=== PATIENT | female | born 1995 | race Caucasian/White ===

== ENCOUNTER 2017-03-12 06:25 | Inpatient (IN) | payer OTHER ==
[2017-03-12] MEDS ORDERED: BUTORPHANOL TARTRATE 1 MG/ML VIAL IVPB ONE (08:58)
[2017-03-12] MEDS ORDERED: DEXTROSE 5%-LACTATED RINGERS 1,000 ML IV SCH (09:00)
[2017-03-12 10:07] VITALS: BMI 27.3
[2017-03-12 10:19] LABS: BASOPHIL 0.6 % (0-2.0); EOSINOPHIL 0.6 % (0-4.5); MCH 27.7 pg (25.7-33.7); MCHC 32.9 g/dl (32.0-36.0); MEAN CELL VOLUME 84.1 fl (80-96); NEUTROPHILS 70.6 % (42.8-82.8); PLATELET COUNT 239 K/MM3 (134-434); RDW 14.6 % (11.6-15.6); WHITE BLOOD COUNT 9.8 K/mm3 (4.0-10.0)
[2017-03-12] MEDS ORDERED: OXYTOCIN 15 UNITS/ LR 250 ML 250 ML IVPB SCH (10:20)
[2017-03-12 10:58] LABS: CALCIUM 8.8 mg/dL (8.5-10.1); COCKROFT - GAULT 174.1735; CREATININE 0.6 mg/dL (0.55-1.02)
--- NOTE | 2017-03-12 11:33 | HP ---
Past Medical History - Primary Care Physician PCP:: Aniya Benavides - Admission Chief Complaint: 22 yrs , 40.2 weeks iup, srom since 5.20 am, OnsetLP since 5.30 am. admitted in labor History of Present Illness: PNC at , [facility] .. wt gain 20 lbs work Up : B neg, Ante Rhogam was taken in the clinic at 28 weeks . Hbsag nr. Rpr nr, Hiv nr, rubella immune, Quantiferon neg, , Gbs neg, PNGT 103 pt was seen by MFM NT screen DS risk 1:92, Quad screen & Materna T-21 screen neg Serial sono done for growth & reviewed History Source: Patient, Medical Record Limitations to Obtaining History: No Limitations - Past Medical History HEAD COOK: No: Migraine, Seizure Cardiovascular: No: HTN, Murmur Pulmonary: No: Asthma ...: 2 ...Para: 1 ( 02/21/16 7'5') ...Term: 1 ...LMP: 05/16/16 (mistaken Dates , EDC by Sono ) ...EDC by Sono: 03/10/17 (40.2 weeks ) Heme/Onc: Yes: Anemia Infectious Disease: No: HIV, STD's Psych: No: Addictions, Anxiety, Bipolar, Depression Endocrine: No: Diabetes Mellitus, Hypothyroidism - Past Surgical History Past Surgical History: Yes: None Hx Myomectomy: No Hx Transabdominal Cerclage: No - Smoking History Smoking history: Never smoked Have you smoked in the past 12 months: No - Alcohol/Substance Use Hx Alcohol Use: No History of Substance Use: reports: None Home Medications - Allergies Allergies/Adverse Reactions: Allergies Allergy/AdvReac Type Severity Reaction Status Date / Time No Known Allergies Allergy Verified 08/12/16 10:11 - Home Medications Home Medications: Ambulatory Orders Vit/Iron Fumarate/FA [ Tablet] 1 each PO DAILY 01/26/16 Physical Exam - Maternity Vital Signs: Vital Signs Temperature 98.2 F 03/12/17 10:00 Pulse Rate 82 03/12/17 10:00 Respiratory Rate 20 03/12/17 10:00 Blood Pressure 105/60 03/12/17 10:00 O2 Sat by Pulse Oximetry (%) Constitutional: Yes: Well Nourished, Mild Distress Eyes: Yes: WNL HENT: Yes: WNL Neck: Yes: WNL Cardiovascular: Yes: WNL Lungs: Clear to auscultation Breast(s): Yes: WNL - Abdominal Exam/OB Fundal Height: 38 Number of Fetuses: Single Presentation: Vertex Contractions: Yes Regularity: Irregular (6-7 min) Intensity: Mild/Mod Monitor Mode: External Heart Rate (range): 130-135 Heart Rate Location: [facility] Category: I Accelerations: Uniform Decelerations: None - Vaginal Exam/OB Vaginal Bleediing: No Speculum Exam: No Dilatation (cm): 4-5 cm Effacement (%): 100 Amniotic Membrane Status: Ruptured Nitrazine Test: Negative (equivocal for the nurse) Presentation: Vertex/Position (exam at 8.45 am) Station: -1 - Physical Exam Musculoskeletal: Yes: WNL Extremities: Yes: WNL Edema: Yes Edema: LLE: 1+, RLE: 1+ Integumentary: Yes: WNL Deep Tendon Reflex Grade: Normal +2 ...Motor Strength: WNL Psychiatric: Yes: WNL - Labs Lab Results: CBC, BMP 03/12/17 09:30 03/12/17 09:30 Problem List - Problems (1) Post-term , 40-42 weeks of gestation Code(s): O48.0 - POST-TERM (2) SROM (spontaneous rupture of membranes) Code(s): IFX4415 - (3) Labor established Code(s): PMW6707 - (4) Anemia Code(s): D64.9 - ANEMIA, UNSPECIFIED Qualifiers: Anemia type: iron deficiency Iron deficiency anemia type: inadequate dietary iron intake Qualified Code(s): D50.8 - Other iron deficiency anemias Assessment/Plan 22 yrs , 40.2 weeks srom followed by labor pains admitted in labor Plan Pitocin augmentation Trial vaginal delivery
[2017-03-12] MEDS ORDERED: BUTORPHANOL TARTRATE 1 MG/ML VIAL IVPUSH ONE (11:58)
--- NOTE | 2017-03-12 12:01 | PN ---
Progress Note, Labor Vaginal Exam #1 Labor Exam Date: 03/12/17 Labor Exam Time: 11:55 Heart Rate (range): 130 Dilatation: 7-8 Effacement (%): 100 Amniotic Membrane Status: Ruptured Presentation: Vertex/Position Station: +1 Remarks: uc 2-3 min fhr cat-1 plan stadol iv [address] pitocin augmentation 03/12/17 03/12/17 10:00 11:00 Temperature 98.2 F Pulse Rate 82 80 Blood Pressure 105/60 112/54 Vaginal Exam #2 Labor Exam Date: 03/12/17 Labor Exam Time: 12:40 Heart Rate (range): 135 Dilatation: 10 Effacement (%): 100 Amniotic Membrane Status: Ruptured Presentation: Vertex/Position Station: +3 Remarks: fhr cat-1 uc q2 min pt pushing Selected Entries 03/12/17 12:00 Temperature 98.0 F Pulse Rate 81 Blood Pressure 120/64
[2017-03-12] MEDS ORDERED: BENZOCAINE 28 GM HEMORRHOIDAL OINTMENT TP PRN (14:12)
[2017-03-12] MEDS ORDERED: BISACODYL 10 MG SUPP.RECT RC PRN (14:12)
[2017-03-12] MEDS ORDERED: METHYLERGONOVINE MALEATE 0.2 MG/1 ML AMP IM PRN (14:12)
[2017-03-12] MEDS ORDERED: oxyCODONE HCL 5 MG TABLET PO PRN (14:12)
[2017-03-12] MEDS ORDERED: WITCH HAZEL 50% (TUCKS) 40 PAD/JAR PAD TP PRN (14:12)
[2017-03-12] MEDS ORDERED: BENZOCAINE 20% 57 GM BOTTLE TP PRN (14:12)
[2017-03-12] MEDS ORDERED: D5W-LR W/ 20 UNITS OXYTOCIN 1,000 ML IV SCH (14:15)
--- NOTE | 2017-03-12 14:19 | PN ---
Delivery - Delivery Vaginal Delivery: No Problems, Spontaneous Type of Anesthesia: Local Episiotomy/Laceration: Vaginal Extension/lac (lacerarion sutred with chr catgut #2/0 under L/A), 1st degree EBL (cc): 300 Delivery, Single - Stages of Labor Date 1st Stage Initiatied: 03/12/17 Time 1st Stage Initiated: 05:30 Date 2nd Stage Initiated: 03/12/17 Time 2nd Stage Initiated: 12:40 Date of Delivery: 03/12/17 Time of Delivery: 12:51 Date Placenta Delivered: 03/12/17 Time Placenta Delivered: 13:00 Placenta: Yes: Spontaneous, Uterine Exploration - Condition of Fruit Worker/Digital Computer Operator Present: No Infant Gender: Female Weight: 7 lb 4 oz Position: Left, OA Total Hours ROM (Hrs/Mins): 7h 41min - 1 Minute Total Score: 9 5 Minutes Total Score: 10 - [place] Feeding Plan Initial Plan: Elected not to breastfeed exclusively throughout hospitalization Remarks - Remarks Remarks: 22 yrs , 40.2 weeks , srom followed by LP. GBS neg PNC at [address] [place] [address] . Intrapartum IV stadol was given for labor analgesia Intrapartum course uneventful
[2017-03-12] MEDS: IBUPROFEN 600 MG TABLET (FP) PO PRN (15:49)
[2017-03-12] MEDS: ACETAMINOPHEN 325 MG TABLET (FP) PO PRN (15:50)
[2017-03-12] MEDS: FERROUS SO4 325 MG TABLET (FP) PO SCH (17:44)
[2017-03-13] MEDS: IBUPROFEN 600 MG TABLET (FP) PO PRN ×2 (01:30→20:04)
[2017-03-13] MEDS: ACETAMINOPHEN 325 MG TABLET (FP) PO PRN ×2 (01:32→20:06)
--- NOTE | 2017-03-13 08:16 | PN ---
Progress Note (short form) - Note Progress Note: ppd 1 doing well, no c/o CBC, BMP 03/12/17 09:30 03/12/17 09:30 Last Vital Signs Temp Pulse Resp BP Pulse Ox 98.2 F 76 18 96/48 03/13/17 05:53 03/13/17 05:53 03/13/17 05:53 03/13/17 05:53 abdomen soft, uterus firm, non tender, lochia mild no calf tenderness plan ambulate, cbc
[2017-03-13] MEDS: PRENATAL VITAMINS W/ FOLIC ACID TABLET (FP) PO SCH (09:01)
[2017-03-13] MEDS: FERROUS SO4 325 MG TABLET (FP) PO SCH ×2 (09:01→17:25)
[2017-03-13 09:10] LABS: BASOPHIL 0.9 % (0-2.0); EOSINOPHIL 0.8 % (0-4.5); MCH 27.4 pg (25.7-33.7); MCHC 32.7 g/dl (32.0-36.0); MEAN CELL VOLUME 83.9 fl (80-96); MEAN PLT VOLUME 8.8 fl (7.5-11.1); NEUTROPHILS 70.5 % (42.8-82.8); PLATELET COUNT 225 K/MM3 (134-434); WHITE BLOOD COUNT 11.3 K/mm3 (4.0-10.0)
[2017-03-13] MEDS ORDERED: SENNOSIDES/DOCUSATE COMBO (SENNA PLUS) TABLET (UD) PO PRN (22:00)
[2017-03-14] MEDS: FERROUS SO4 325 MG TABLET (FP) PO SCH (08:27)
[2017-03-14 08:54] VITALS: BP 96/57; PULSE 74; TEMP 98.1
[2017-03-14] MEDS: PRENATAL VITAMINS W/ FOLIC ACID TABLET (FP) PO SCH (09:48)
--- NOTE | 2017-03-14 10:25 | DS ---
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 Vital Signs: Vital Signs Temperature 98.1 F 03/14/17 08:52 Pulse Rate 74 03/14/17 08:52 Respiratory Rate 20 03/14/17 08:52 Blood Pressure 96/57 03/14/17 08:52 O2 Sat by Pulse Oximetry (%) Constitutional: Yes: Well Nourished, Pallor Eyes: Yes: WNL HENT: Yes: WNL Neck: Yes: WNL Cardiovascular: Yes: WNL Respiratory: Yes: WNL Gastrointestinal: Yes: WNL ...Rectal Exam: Yes: WNL Renal/: Yes: WNL Pelvis: Yes: WNL External Genitalia: Yes: Normal ....Post : Yes: Uterus firm, Uterus non-tender, Moderate lochia rubra ( perineum intact) Breast(s): Yes: WNL (BF , Not engorged) Musculoskeletal: Yes: WNL Extremities: Yes: WNL. No: Calf Tenderness Edema: Yes Edema: LLE: Trace, RLE: Trace Integumentary: Yes: WNL Neurological: Yes: WNL, Alert, Oriented ...Motor Strength: WNL Psychiatric: Yes: WNL, Alert, Oriented Labs: CBC, BMP 03/13/17 08:50 03/12/17 09:30 Delivery - Delivery Vaginal Delivery: No Problems, Spontaneous Type of Anesthesia: Local Episiotomy/Laceration: Vaginal Extension/lac (lacerarion sutred with chr catgut #2/0 under L/A), 1st degree EBL (cc): 300 Delivery, Single - Stages of Labor Date 1st Stage Initiatied: 03/12/17 Time 1st Stage Initiated: 05:30 Date 2nd Stage Initiated: 03/12/17 Time 2nd Stage Initiated: 12:40 Date of Delivery: 03/12/17 Time of Delivery: 12:51 Time Placenta Delivered: 13:00 Placenta: Yes: Spontaneous, Uterine Exploration - Condition of Workforce Development Program Director/Mixing Engineer Present: No Gender: Female Weight: 7 lb 4 oz Position: Left, OA Total Hours ROM (Hrs/Mins): 7h 41min - 1 Minute Total Score: 9 5 Minutes Total Score: 10 - Feeding Plan Initial Plan: Elected not to breastfeed exclusively throughout hospitalization Remarks - Remarks Remarks: 22 yrs , 40.2 weeks , srom followed by LP. GBS neg PNC at [address] [place] [address] . Intrapartum IV stadol was given for labor analgesia Intrapartum course uneventful Pp course uneventful Anemia counselled Discharge today. Discharge Summary Reason For Visit: LABOR Current Active Problems Anemia (Acute) Labor established (Acute) Normal spontaneous vaginal delivery (Acute) Post-term , 40-42 weeks of gestation (Acute) SROM (spontaneous rupture of membranes) (Acute) Condition: Stable - Instructions Diet, Activity, Other Instructions: Post Instructions DIET: Continue good diet high in protein, calcium, and iron rich foods. Drink at least eight (8) glasses of water daily in addition to other fluids. Ct Regular diet MEDICATIONS: Continue vitamins and iron as previously directed. Motrin and Tylenol may be taken for minor discomfort. ACTIVITY: Mild to moderate exercise may be started in two (2) weeks. Take frequent rest periods. Resume normal activity after six (6) week check up. WOUND CARE OF OPERATIVE SITE: Continue use of perineal bottle until vaginal discharge stops. Keep area clean. Shower daily. Keep abdominal wound dry. Report any drainage or redness to physician. Tub baths, tampons and douches are not permitted for [address] Breast feeding & or Bottle feeding BREAST CARE: (For those that are not ): If engorgement occurs: Wear tight fitting bra. Take Tylenol or Motrin for pain. Apply cold packs (ice in bags to each breast ) FAMILY PLANNING: There are many control alternatives to pursue and they should be discussed at your first office visit. You may resume sexual activity after your six (6) week check up. (Remember, breast feeding is not a contraceptive) NEXT PHYSICIAN APPOINTMENT: Be certain to call for a six (6) week appointment, unless otherwise directed. Call Clinic or got to Emergency Dept if you have any of the following: Heavy vaginal bleeding Painful urination Leg pain Unusual odor noted to vaginal bleeding High fever Red streaking noted on breast Referrals: Loki Khan MD [Staff Physician] - Aniya Benavides MD [Staff Physician] - Disposition: HOME - Home Medications Comprehensive Discharge Medication List: Ambulatory Orders Vit/Iron Fumarate/FA [ Tablet] 1 each PO DAILY 01/26/16 Acetaminophen [Tylenol .Regular Strength -] 650 mg PO Q3H PRN #0 tablet Ferrous Sulfate [Feosol] 325 mg PO BIDWM #60 tab 03/13/17 Ibuprofen [Motrin -] 200 mg PO Q4H PRN #0 tablet 03/13/17 Vitamins (Sjr) - 1 tab PO DAILY tablet 03/13/17
== END 2017-03-14 11:56 | disposition home or self-care (01) | DRG 560 ==
LOC: JDEL 06:25 → JLDR 08:45 → J3W 15:10
PROVIDERS: ADMIT Obstetrics & Gynecology; ATTEND Obstetrics & Gynecology
PROC: 0HQ9XZZ Repair Perineum Skin, External Approach (ICD-10-PCS; principal; 2017-03-12)
PROC: 10E0XZZ Delivery of Products of Conception, External Approach (ICD-10-PCS; 2017-03-12)
DX: O48.0 Post-term pregnancy (principal); O99.02 Anemia complicating childbirth; O70.0 First degree perineal laceration during delivery; Z37.0 Single live birth; Z3A.40 40 weeks gestation of pregnancy
CPT/HCPCS: 36415; 59409; 80048; 85025; 85461; 85730; 86593; 86850; 86870; 86900; 86901; 86902; 86999

== ENCOUNTER 2018-05-22 17:04 | Emergency (ER) | payer OTHER ==
[2018-05-22 17:14] VITALS: BP 115/56; PULSE 89; TEMP 98.4; BMI 23.8
--- NOTE | 2018-05-22 18:07 | PDOC ---
History of Present Illness - General Chief Complaint: Pain, Acute Stated Complaint: KNEE PAIN Time Seen by Provider: 05/22/18 17:53 History Source: Patient Exam Limitations: Clinical Condition - History of Present Illness Initial Comments: 05/22/18 18:01 Patient with no significant past medical history presenting with complaining of a one-month history of bilateral knee pain. Patient reported when she is walking she felt like the knee is giving out and also feels popping sound in the knees. Denies any trauma or previous injury to the knee but denies any swollen to her knees. Past History - Past Medical History Allergies/Adverse Reactions: Allergies Allergy/AdvReac Type Severity Reaction Status Date / Time No Known Allergies Allergy Verified 05/22/18 17:14 Home Medications: Ambulatory Orders Leg Brace [Knee Brace] 1 each MC DAILY #1 each 05/22/18 Leg Brace [Knee Brace] 1 each MC DAILY #1 each 05/22/18 Meloxicam [Mobic] 15 mg PO DAILY PRN #12 tablet 05/22/18 Asthma: No Cancer: No Cardiac Disorders: No COPD: No Diabetes: No HTN: No Seizures: No Thyroid Disease: No - Reproductive History (#): 2 Para: 1 Cervical CA: No Dysfunctional Uterine Bleeding: No Ectopic : No Endometrial CA: No Polycystic Ovaries: No Tubal Ligation: No - Suicide/Smoking/Psychosocial Hx Smoking History: Never smoked Have you smoked in the past 12 months: No Information on smoking cessation initiated: No Hx Alcohol Use: No Drug/Substance Use Hx: No Substance Use Type: None Hx Substance Use Treatment: No Review of Systems - Review of Systems Able to Perform ROS?: Yes Is the patient limited Bengali proficient: No Constitutional: No: Chills, Diaphoresis, Fever, Loss of Appetite, Malaise, Night Sweats, Weakness, Weight Stable, Unintentional Wgt. Loss, Unexplained wgt Loss, Other HEENTM: No: Eye Pain, Blurred Vision, Tearing, Recent change in vision, Double Vision, Cataracts, Ear Pain, Ocular Prothesis, Ear Discharge, Nose Pain, Nose Congestion, Tinnitus, Nose Bleeding, Hearing Loss, Throat Pain, Throat Swelling , Mouth Pain, Dental Problems, Difficulty Swallowing, Mouth Swelling, Other Respiratory: No: Cough, Orthopnea, Shortness of Breath, SOB with Exertion, SOB at Rest, Stridor, Wheezing, Productive cough, Hemoptysis, Other Cardiac (ROS): No: Chest Pain, Edema, Irregular Heart Rate, Lightheadedness, Palpitations, Syncope, Chest Tightness, Other ABD/GI: No: Abdominal Distended, Abd. Pain w/ defecation, Blood Streaked Bowels , Constipated, Diarrhea, Difficulty Swallowing, Nausea, Poor Appetite, Poor Fluid Intake, Rectal Bleeding, Vomiting, Indigestion, Abdominal cramping, Tarry Stools, Other Musculoskeletal: Yes: Joint Pain (b/l knee caps). No: Joint Swelling, Joint Stiffness Neurological: No: Headache, Numbness, Paresthesia, Pre-Existing Deficit, Seizure , Tingling, Tremors, Weakness, Unsteady Gait, Ataxia, Dizziness, Other All Other Systems: Reviewed and Negative *Physical Exam - Vital Signs Last Vital Signs Temp Pulse Resp BP Pulse Ox 98.4 F 89 17 115/56 100 05/22/18 17:12 05/22/18 17:12 05/22/18 17:12 05/22/18 17:12 05/22/18 17:12 - Physical Exam Comments: 05/22/18 18:04 GENERAL: Well developed, well nourished. Awake and alert. No acute distress. HEENT: Normocephalic, atraumatic. PERRLA, EOMI. No conjunctival pallor. Sclera are non- icteric. Moist mucous membranes. Oropharynx is clear. NECK: Supple. Full ROM. No JVD. Carotid pulses 2+ and symmetric, without bruits. No thyromegaly. No lymphadenopathy. CARDIOVASCULAR: Regular rate and rhythm. No murmurs, rubs, or gallops. Distal pulses are 2+ and symmetric. PULMONARY: No evidence of respiratory distress. Lungs clear to auscultation bilaterally. No wheezing, rales or rhonchi. ABDOMINAL: Soft. Non-tender. Non-distended. No rebound or guarding. No organomegaly. Normoactive bowel sounds. MUSCULOSKELETAL : Mild tenderness around bilateral kneecaps. Negative anterior- posterior drawer tests of bilateral knee.Normal range of motion at all joints. No bony deformities EXTREMITIES: No cyanosis. No clubbing. No edema. No calf tenderness. SKIN: Warm and dry. Normal capillary refill. No rashes. No jaundice. NEUROLOGICAL: Alert, awake, appropriate. Cranial nerves 2-12 intact. No deficits to light touch and temperature in face, upper extremities and lower extremities. No motor deficits in the in face, upper extremities and lower extremities. Normoreflexic in the upper and lower extremities. Normal speech. Toes are down- going bilaterally. Gait is normal without ataxia. PSYCHIATRIC: Cooperative. Good eye contact. Appropriate mood and affect. General Appearance: Yes: Nourished, Appropriately Dressed. No: Apparent Distress ED Treatment Course - RADIOLOGY Radiology Studies Ordered: Category Date Time Status KNEE 3 POS-LEFT [RAD] Stat Radiology 05/22/18 17:59 Ordered KNEE 3 POS-RIGHT [RAD] Stat Radiology 05/22/18 17:59 Ordered Medical Decision Making - Medical Decision Making 05/22/18 18:05 Patient presented with one month history of bilateral knee pain without trauma. No evidence of knee dislocation or swelling on exam. Symptoms likely knee strain and x-ray bilateral knees ordered. Discharge home if negative x-ray on NSAIDs with orthopedics follow-up 05/22/18 18:44 No acute pathology or location on x-rays bilateral knee and patient discharged home with a knee brace on NSAID and orthopedics follow-up *DC/Admit/Observation/Transfer Diagnosis at time of Disposition: Strain of both knees Knee pain, bilateral Qualifiers: Chronicity: acute Qualified Code(s): M25.561 - Pain in right knee - Discharge Dispostion Disposition: HOME Condition at time of disposition: Good Decision to Admit order: No - Prescriptions Prescriptions: Leg Brace [Knee Brace] 1 each MC DAILY #1 each Leg Brace [Knee Brace] 1 each MC DAILY #1 each Meloxicam [Mobic] 15 mg PO DAILY PRN #12 tablet PRN Reason: knee pain - Referrals Referrals: Nay Benson MD [Primary Care Provider] - Yony Garcia MD [Staff Physician] - - Patient Instructions Printed Discharge Instructions: Muscle Strain Additional Instructions: Keep knee brace on daily until symptoms resolve . take prescribed medication as needed for pain. Follow-up with orthopedics as referred - Post Discharge Activity
== END 2018-05-22 18:48 | disposition home or self-care (01) ==
LOC: JERFT 17:04 → JER 17:04 → JERFT 18:48
PROC: 2W3RXYZ Immobilization of Left Lower Leg using Other Device (ICD-10-PCS; principal; 2018-05-22)
PROC: 2W3QXYZ Immobilization of Right Lower Leg using Other Device (ICD-10-PCS; 2018-05-22)
DX: S86.811A Strain of other muscle(s) and tendon(s) at lower leg level, right leg, initial encounter (principal); S86.812A Strain of other muscle(s) and tendon(s) at lower leg level, left leg, initial encounter; X58.XXXA Exposure to other specified factors, initial encounter; Y93.89 Activity, other specified; Y92.89 Other specified places as the place of occurrence of the external cause
CPT/HCPCS: 29530; 73562-TC-LT-FY; 73562-TC-RT-FY; 99281-25

== ENCOUNTER 2018-12-10 16:19 | Emergency (ER) | payer OTHER ==
[2018-12-10] MEDS ORDERED: ACETAMINOPHEN 500 MG TABLET (FP) PO ONE (16:35)
--- NOTE | 2018-12-10 16:36 | PDOC ---
Rapid Medical Evaluation Time Seen by Provider: 12/10/18 16:34 Medical Evaluation: Allergies Allergy/AdvReac Type Severity Reaction Status Date / Time No Known Allergies Allergy Verified 12/10/18 16:34 12/10/18 16:34 I have performed a brief in-person evaluation of this patient. The patient presents with a chief complaint of: headaches over the last 2 weeks with nausea and dizziness; Pelvic pain had IUD Pertinent physical exam findings: NAD no gross deficits I have ordered the following: Urine Preg and Tylenol The patient will proceed to the ED for further evaluation. 12/10/18 16:36
[2018-12-10 16:38] VITALS: BP 150/54; PULSE 90; TEMP 98.4; BMI 24.2
[2018-12-10] MEDS ORDERED: ACETAMINOPHEN 500 MG TABLET (FP) ONE (16:49)
--- NOTE | 2018-12-10 17:24 | PDOC ---
History of Present Illness - General Chief Complaint: Lightheaded Stated Complaint: headache,nausea,dizzines Time Seen by Provider: 12/10/18 16:34 History Source: Patient - History of Present Illness Timing/Duration: other Past History - Past Medical History Allergies/Adverse Reactions: Allergies Allergy/AdvReac Type Severity Reaction Status Date / Time No Known Allergies Allergy Verified 12/10/18 16:34 Home Medications: Ambulatory Orders Ibuprofen [Motrin -] 400 mg PO TID PRN 12/10/18 Nitrofurantoin Monohyd/M-Cryst [Macrobid -] 100 mg PO BID #14 capsule 12/10/18 Anemia: Yes Asthma: No Cancer: No Cardiac Disorders: No COPD: No Diabetes: No HTN: No Seizures: No Thyroid Disease: No - Reproductive History (#): 2 Para: 1 Cervical CA: No Dysfunctional Uterine Bleeding: No Ectopic : No Endometrial CA: No Polycystic Ovaries: No Tubal Ligation: No - Suicide/Smoking/Psychosocial Hx Smoking History: Never smoked Have you smoked in the past 12 months: No Hx Alcohol Use: No Drug/Substance Use Hx: No Substance Use Type: None Hx Substance Use Treatment: No Review of Systems - Review of Systems Constitutional: No: Chills, Fever HEENTM: No: Blurred Vision Respiratory: No: Shortness of Breath Cardiac (ROS): No: Chest Pain ABD/GI: Yes: Abdominal cramping. No: Nausea, Vomiting : No: Dysuria, Flank Pain, Hematuria Neurological: Yes: Headache, Dizziness *Physical Exam - Vital Signs Last Vital Signs Temp Pulse Resp BP Pulse Ox 98.4 F 90 18 150/54 L 98 12/10/18 16:35 12/10/18 16:35 12/10/18 16:35 12/10/18 16:35 12/10/18 16:35 - Physical Exam General Appearance: Yes: Appropriately Dressed. No: Apparent Distress HEENT: positive: Normal Voice Neck: positive: Supple Respiratory/Chest: negative: Respiratory Distress Female Pelvic Exam: positive: normal external exam, normal adnexa, other (IUD string visulaized at Os). negative: CMT, discharge, lesions, vaginal bleeding Gastrointestinal/Abdominal: positive: Soft. negative: Tender Musculoskeletal: negative: CVA Tenderness Integumentary: positive: Dry, Warm Neurologic: positive: machine cementer II-XII NML intact, Fully Oriented, Alert, Normal Mood/ Affect, Motor Strength 5/5 Moderate Sedation - Procedure Monitoring Vital Signs: Procedure Monitoring Vital Signs Temperature 98.4 F 12/10/18 16:35 Pulse Rate 90 12/10/18 16:35 Respiratory Rate 18 12/10/18 16:35 Blood Pressure 150/54 L 12/10/18 16:35 O2 Sat by Pulse Oximetry (%) 98 12/10/18 16:35 ED Treatment Course - LABORATORY CBC & Chemistry Diagram: 12/10/18 17:26 - ADDITIONAL ORDERS Additional order review: Laboratory Results 12/10/18 16:47 Urine HCG, Qual Negative - Medications Given in the ED: ED Medications Discontinued Medications Generic Name Dose Route Start Last Admin Trade Name Vijay PRN Reason Stop Dose Admin Acetaminophen 1,000 mg 12/10/18 16:35 12/10/18 16:54 Tylenol - PO 12/10/18 16:36 1,000 mg ONCE ONE Administration Medical Decision Making - Medical Decision Making 12/10/18 17:20 23-year-old female, history of anemia, no transfusions in the past, unable to tolerate iron pills, has IUD in place, here with multiple complaints including headache for 2 weeks, located to bilateral judaism, unable to describe, 8/10 at its worst, mostly constant with some relief with brgt-ujr-mllumal medication. No exacerbating factors. Also reports intermittent lightheadedness and possible photophobia. No nausea, vomiting, neck pain, uri sxs, f/c. No history of similar headache in past. Patient also complaining of some lower abdominal cramping for the past 3 days and concerned that her IUD may be coming out per patient. C/p possible dysuria, no flank pain or vaginal discharge See exam CHATMAN No red flags at this time Possible migraine vs tension vs other non-emergent source of CHATMAN Well cathy w/ no focal deficits Preg test neg -pain control in ED -neuro referral on discharge Dizziness H/o anemia No transfusion in past Unable to ann iron pills Stable here -Upreg neg -H/H wnl Lower abd cramping w/ possible dysuria No e/o pyelo Abd benign Pelvic wnl w/ IUD in place UA w/ 3+ LE, ucx sent -will tx for possible UTI *DC/Admit/Observation/Transfer Diagnosis at time of Disposition: Dysuria Headache Qualifiers: Headache type: unspecified Headache chronicity pattern: acute headache Intractability: not intractable Qualified Code(s): R51 - Headache - Discharge Dispostion Disposition: HOME Condition at time of disposition: Improved - Prescriptions Prescriptions: Nitrofurantoin Monohyd/M-Cryst [Macrobid -] 100 mg PO BID #14 capsule - Referrals Referrals: Nay Benson MD [Primary Care Provider] - - Patient Instructions Printed Discharge Instructions: DI for Headache, DI for Urinary Tract Infection (UTI) Additional Instructions: Continue taking Motrin or Tylenol for your headache. Take antibiotics as prescribed for possible UTI If headache persists, please follow-up with your PMD - Post Discharge Activity
[2018-12-10 17:49] LABS: BASO % 0.2 % (0-2.0); EOS % 0.2 % (0-4.5); HEMATOCRIT 32.6 % (32.4-45.2); LYMPH % 16.6 % (8-40); MCH 28.5 pg (25.7-33.7); MCHC 33.6 g/dl (32.0-36.0); MEAN CELL VOLUME 84.8 fl (80-96); MONO % 5.7 % (3.8-10.2); NEUT % 77.3 % (42.8-82.8); PLATELET COUNT 256 K/MM3 (134-434); RBC 3.84 M/mm3 (3.60-5.2); RDW 15.4 % (11.6-15.6); WHITE BLOOD COUNT 5.7 K/mm3 (4.0-10.0)
[2018-12-10 17:52] LABS: URINE APPEARANCE SLCLOUDY; URINE BILIRUBIN NEGATIVE (<2.0 mg/dL); URINE COLOR STRAW; URINE GLUCOSE (UA) NEGATIVE (NEGATIVE); URINE KETONE NEGATIVE (NEGATIVE); URINE LEUK ESTERASE 3+ (NEGATIVE); URINE NITRITE NEGATIVE (NEGATIVE); URINE PROTEIN NEGATIVE (NEGATIVE); URINE UROBILINOGEN NEGATIVE mg/dL (0.2-1.0)
[2018-12-10 18:08] LABS: EPI CELLS FEW /HPF (FEW); URINE BACTERIA RARE /hpf (NONE SEEN)
== END 2018-12-10 18:30 | disposition home or self-care (01) ==
LOC: JER 16:19 → JERFT 16:19
DX: N39.0 Urinary tract infection, site not specified (principal); R51 Headache
CPT/HCPCS: 36415; 81003; 81015; 84703; 85025; 87086; 99281-25

== ENCOUNTER 2019-12-06 19:35 | Emergency (ER) | payer OTHER ==
[2019-12-06 19:48] VITALS: BP 104/40; PULSE 99; TEMP 98.4; BMI 24.8
--- NOTE | 2019-12-06 22:06 | PDOC ---
History of Present Illness - General Chief Complaint: Injury Stated Complaint: ANKLE INJURY Time Seen by Provider: 12/06/19 21:29 - History of Present Illness Initial Comments: 12/06/19 22:02 24-year-old female without comorbidities presents requesting a test and for left ankle pain after describing an inversion injury which occurred today while walking down the steps. Past History - Past Medical History Allergies/Adverse Reactions: Allergies Allergy/AdvReac Type Severity Reaction Status Date / Time No Known Allergies Allergy Verified 12/06/19 19:48 Home Medications: Ambulatory Orders Ibuprofen [Motrin -] 400 mg PO TID PRN 12/10/18 Nitrofurantoin Monohyd/M-Cryst [Macrobid -] 100 mg PO BID #14 capsule 12/10/18 Nitrofurantoin Monohyd/M-Cryst [Macrobid -] 100 mg PO BID #14 capsule 12/10/18 Anemia: Yes Asthma: No Cancer: No Cardiac Disorders: No COPD: No Diabetes: No HTN: No Seizures: No Thyroid Disease: No - Reproductive History (#): 2 Para: 1 Cervical CA: No Dysfunctional Uterine Bleeding: No Ectopic : No Endometrial CA: No Polycystic Ovaries: No Tubal Ligation: No - Psycho Social/Smoking Cessation Hx Smoking History: Never smoked Have you smoked in the past 12 months: No Hx Alcohol Use: No Drug/Substance Use Hx: No Substance Use Type: None Hx Substance Use Treatment: No Review of Systems - Review of Systems Musculoskeletal: Yes: Joint Pain *Physical Exam - Vital Signs Last Vital Signs Temp Pulse Resp BP Pulse Ox 98.4 F 99 H 18 104/40 L 100 12/06/19 19:46 12/06/19 19:46 12/06/19 19:46 12/06/19 19:46 12/06/19 19:46 - Physical Exam 12/06/19 22:02 Ankle skin color and temperature normal range of motion is slightly limited. There is no tenderness about the proximal fibula or along its distal course. No tenderness about the medial lateral malleolus base of the fifth metatarsal or navicular. Mild tenderness over the ATFL without instability no gross sensorimotor deficits neurovascular intact. ED Treatment Course - RADIOLOGY Radiology Studies Ordered: Category Date Time Status ANKLE-LEFT [RAD] Stat Radiology 12/06/19 21:47 Ordered Medical Decision Making - Medical Decision Making 12/06/19 22:04 Weight-bear as tolerated with Aircast and crutches for ankle sprain 12/06/19 22:04 No fracture trauma or destructive process on radiograph today.LFollow-up with orthopedics Discharge - Discharge Information Problems reviewed: Yes Clinical Impression/Diagnosis: Ankle sprain Condition: Stable Disposition: HOME - Admission No - Follow up/Referral Referrals: Nay Benson MD [Primary Care Provider] - Eduardo Good DO [Staff Physician] - - Patient Discharge Instructions Additional Instructions: You may weight-bear as tolerated with use of crutches in the Aircast Tylenol as directed for pain. Return to the emergency room for worsening symptoms. And without fail please follow-up with orthopedic surgery in 1 to 2 days for further evaluation and treatment options. - Post Discharge Activity Work/Back to School Note: Back to Work
== END 2019-12-06 22:50 | disposition home or self-care (01) ==
LOC: JERFT 19:35 → SUPCPDRO 19:35 → JERFT 22:50
PROC: 2W3RX1Z Immobilization of Left Lower Leg using Splint (ICD-10-PCS; principal; 2019-12-06)
DX: S93.402A Sprain of unspecified ligament of left ankle, initial encounter (principal); X50.1XXA Overexertion from prolonged static or awkward postures, initial encounter; Y93.89 Activity, other specified; Y92.89 Other specified places as the place of occurrence of the external cause; Y99.8 Other external cause status; Z86.2 Personal history of diseases of the blood and blood-forming organs and certain disorders involving the immune mechanism
CPT/HCPCS: 73610-TC-LT-FY; 84703; 99281-25